=== PATIENT | female | born 1955 | race Caucasian/White ===

== ENCOUNTER 2017-08-05 16:03 | Outpatient (CLI) | payer OTHER | END 2017-08-05 16:04 | disposition home or self-care (01) | LOC: BICRAD 16:03 | PROVIDERS: ATTEND Internal Medicine | DX: M54.31 Sciatica, right side (principal); D25.9 Leiomyoma of uterus, unspecified; M16.11 Unilateral primary osteoarthritis, right hip; M46.87 Other specified inflammatory spondylopathies, lumbosacral region; M48.07 Spinal stenosis, lumbosacral region | CPT/HCPCS: 72100; 72220 ==

== ENCOUNTER 2018-06-05 18:46 | Inpatient (IN) | payer OTHER ==
[2018-06-05] MEDS ORDERED: Adenosine 6 MG/2 ML VIAL ONE (18:59)
[2018-06-05] MEDS ORDERED: Diltiazem 125 MG/25 ML ONE ×2 (19:08→19:09)
[2018-06-05 19:15] LABS: #Basophils 0.1 thou/uL (0.0-0.2); #Eosinphils 0.1 thou/uL (0.0-0.7); #Lymphocytes 2.1 thou/uL (1.20-3.40); #Monocytes 0.7 thou/uL (0.11-0.59); #Neutrophils 3.6 thou/uL (1.40-6.50); %Basophils 1.3 % (0.0-1.0); %Eosinophils 1.6 % (0.0-10.0); %Lymphocytes 31.2 % (21.0-51.0); %Monocytes 10.3 % (0.0-10.0); %Neutrophils 55.5 % (42.0-75.0); Hemoglobin 14.7 g/dL (12.0-16.0); Mean Corpuscular HGB CONC 34.1 g/dL (32.0-36.0); Mean Corpuscular Hemoglobin 32.5 pg (27.0-31.0); Mean Corpuscular Volume 95.2 fL (78.0-98.0); Mean Platelet Volume 7.5 fL (7.4-10.4); Platelet Count 274 thou/uL (130-400); RBC Distribution Width 11.2 % (11.5-14.5); Red Blood Cell (RBC) Count 4.54 mill/uL (4.20-5.40); White Blood Cell (WBC) Count 6.5 thou/uL (4.8-10.8)
[2018-06-05 19:40] LABS: ALT (SGPT) 26 U/L (8-55); AST (SGOT) 21 U/L (5-34); Albumin 4.6 g/dL (3.4-4.8); Alkaline Phosphatase 120 U/L (40-150); Anion Gap 13 mmol/L (10-20); BUN (Urea Nitrogen) 23 mg/dL (9.8-20.1); Bilirubin, Total 0.4 mg/dL (0.2-1.2); CK (CPK) 56 U/L (29-168); Calc. Creatinine Clearance 0 mL/min (70-130); Calcium 10.2 mg/dL (7.8-10.44); Carbon Dioxide 26 mmol/L (23-31); Chloride 105 mmol/L (98-107); Estimated GFR-MDRD 53; Globulin 3.2 g/dL (2.4-3.5); Glucose 115 mg/dL (80-115); Potassium 3.7 mmol/L (3.5-5.1); Protein, Total 7.8 g/dL (6.0-8.3); Sodium 140 mmol/L (136-145)
--- NOTE | 2018-06-05 21:33 | RAD ---
RADIOGRAPH CHEST 1 VIEW: HISTORY: 62-year-old female with tachycardia. FINDINGS: There are no air space densities, pulmonary edema, pneumothorax, or cardiomegaly. The lateral costop hrenic angles are sharp. IMPRESSION: No acute cardiopulmonary findings. felicita POS: JIN
[2018-06-05 22:43] LABS: Troponin I Less than 0.010 ng/mL (< 0.028)
[2018-06-05] MEDS ORDERED: Enoxaparin Sodium 100 MG/ML SYRINGE SC SCH (22:45)
[2018-06-06] MEDS ORDERED: Acetaminophen 500 MG TAB ONE (00:05)
[2018-06-06] MEDS ORDERED: Ibuprofen 200 MG TAB ONE (00:05)
[2018-06-06 01:40] LABS: Troponin I Less than 0.010 ng/mL (< 0.028)
[2018-06-06] MEDS ORDERED: Ondansetron ODT 4 MG TAB SL PRN (02:36)
[2018-06-06] MEDS ORDERED: Acetaminophen 325 MG TAB PO PRN (02:36)
[2018-06-06] MEDS ORDERED: Ondansetron PF 4 MG/2 ML Vial IVP PRN (02:36)
[2018-06-06 03:45] VITALS: BMI 34.0
--- NOTE | 2018-06-06 06:10 | HP ---
CHIEF COMPLAINT: Palpitations. HISTORY OF PRESENT ILLNESS: The patient is a very pleasant 62-year-old female with past medical history of osteoarthritis and hypertension, who comes into the hospital with complaints of palpitations. The patient stated that she was in her garage, doing some work when she started noticing significant amount of palpitations, she got very flushed. No chest pain or shortness of breath at this time. She was afraid, so she came into the ER for further evaluation. The patient was found to be in atrial fibrillation with RVR. She was given some adenosine and diltiazem, and her heart rate went back to normal sinus, controlled in the 60s to 80s. The patient does take metoprolol 50 mg daily. She has not missed any doses. The patient does state that she has been under a lot of stress recently, lot of things have been going on in regard to her parents and also some stuff for her personal life too. The patient currently feels well. She does not have any chest pain or shortness of breath. PAST MEDICAL HISTORY: Hypertension and osteoarthritis of the right hip. PAST SURGICAL HISTORY: She had a tonsillectomy and appendectomy. SOCIAL HISTORY: She denies any alcohol use, smoking. She is a full code. No recreational drug use. She lives with her . ALLERGIES: SHE HAS NO KNOWN DRUG ALLERGIES. MEDICATIONS: 1. Metoprolol 50 mg daily. 2. She takes Advil and Tylenol as needed for her pain. REVIEW OF SYSTEMS: All negative except for the ones mentioned above in HPI. FAMILY HISTORY: Father has Alzheimer's. Mother had leukemia at age of 85. PHYSICAL EXAMINATION: VITAL SIGNS: Temperature 98.3, heart rate 78, respiratory rate 18, 98% on room air, and blood pressure 159/88. GENERAL: She is awake, alert, and oriented x3. Does not appear in distress. CARDIOVASCULAR: S1, S2 present. No murmurs, rubs, or gallops. ABDOMEN: Soft and nontender. Bowel sounds are present x2. EXTREMITIES: No edema. Pedal pulses are present x2. NEUROVASCULAR: No focal deficits noted. SKIN: No cuts, lesions, or bruises noted. HEENT: Normocephalic, atraumatic. No lymphadenopathy noted. PSYCH: Normal affect. LABORATORY DATA: Laboratory results are as of the following; WBCs of 6.5, hemoglobin of 14.7, and hematocrit of 43.2. Chemistry, sodium of 140, potassium of 3.7, BUN of , creatinine of 1.04. Her troponins x3 were negative. Her TSH was 2.17. DIAGNOSTIC STUDIES: The patient also had a chest x-ray, which did not indicate any acute abnormalities. ASSESSMENT AND PLAN: The patient is a very pleasant 62-year-old female, who presents to the hospital with palpitations. 1. Atrial fibrillation with a rapid ventricular response. This seems to be paroxysmal. We will get an echocardiogram on this patient. Her CHADS-VASc score maybe 2. We will start her on some Lovenox. We will also get Cardiology to see this patient. The patient is supposed to have surgery of her right hip in the next few months. 2. Hypertension. We will continue home metoprolol 50 mg daily. 3. Deep venous thrombosis prophylaxis. The patient is already on Lovenox subcu. Job ID: [id number]
[2018-06-06] MEDS ORDERED: Enoxaparin Sodium 100 MG/ML SYRINGE SC SCH (09:00)
[2018-06-06] MEDS: Ibuprofen 200 MG TAB PO PRN ×2 (14:38→21:04)
[2018-06-06] MEDS: Dronedarone HCl 400 MG TAB PO SCH (17:08)
--- NOTE | 2018-06-06 20:58 | CON ---
DATE OF CONSULTATION: 06/06/2018 HISTORY OF PRESENT ILLNESS: Uzma Lott is a pleasant 62-year-old white female, who denies any cardiac problems or arrhythmias in the past. She denies ever having any chest, arm, neck or jaw discomfort or palpitations. Yesterday, she was doing some work in her garage when she started noticing a very rapid heart beat. She denies any shortness of breath or chest discomfort, and had no lightheadedness or dizziness. She came to the emergency room for further evaluation. She was found to be in atrial fibrillation with fast ventricular response of 160 per minute. In the emergency room, she was given adenosine 6 mg IV followed by Cardizem 20 mg IV, Cardizem 5 mg/hour and then another 10 mg of Cardizem. She was given Lovenox 1 mg/kg. She eventually converted to sinus rhythm and the Cardizem has been discontinued. PAST MEDICAL HISTORY: Hypertension, osteoarthritis of the right hip with possible total hip replacement in the future. PAST SURGICAL HISTORY: Tonsillectomy and appendectomy. MEDICATIONS: 1. Metoprolol 50 daily. 2. Ibuprofen 200 mg b.i.d. 3. Tylenol Arthritis. ALLERGIES: NONE. SOCIAL HISTORY: She does not smoke or drink. FAMILY HISTORY: Mother had myocardial infarction. REVIEW OF SYSTEMS: A 12-point review of systems otherwise is unremarkable. PHYSICAL EXAMINATION: VITAL SIGNS: Blood pressure 147/80, pulse 83, sinus rhythm. HEENT: PERRL. NECK: Supple. CHEST: Clear. CARDIAC: S1 and S2 normal without any S3, S4, or murmurs. Carotid upstrokes are normal without bruits. ABDOMEN: Normal bowel sounds without tenderness. EXTREMITIES: Reveal no clubbing, cyanosis, or edema. NEUROLOGIC: Grossly intact. SKIN: Warm and dry. LABORATORY DATA: EKG revealed atrial fibrillation with fast ventricular response. There were no significant ST changes. Echo is pending. CBC is unremarkable. Sodium 140, potassium 3.7, chloride 105, carbon dioxide 26, BUN 23, creatinine 1.04. TSH is normal. Troponin I x3 is normal. Liver function tests are normal. IMPRESSION: 1. Paroxysmal atrial fibrillation, first episode. 2. Hypertension, which appears to be somewhat poorly controlled at the present time. 3. Unknown cholesterol status. 4. Positive family history. PLAN: Echocardiogram will be performed to assess left ventricular function. She denies any history of falls at home and has never had gastrointestinal bleeding or intracranial bleeding. Therefore, she will be placed on Eliquis 5 mg b.i.d. if invasive evaluation is not needed. If she has normal left ventricular function, consideration may be given to placing her on Multaq. Fast lipid profile will be obtained. Job ID: [id number] MTDD
[2018-06-06] MEDS: Apixaban 5 MG TAB PO SCH (21:04)
[2018-06-07 06:42] LABS: Cardiac Risk 3.7 (Less than 4.5)
--- NOTE | 2018-06-07 07:41 | PDOC.PN ---
- Subjective Encounter Start Date: 06/07/18 Encounter Start Time: 10:30 Subjective: Patient without chest pain. No SOB. No palpitations. Ambulating well. - Objective MAR Reviewed: Yes Vital Signs & Weight: Vital Signs (12 hours) Temp Pulse Resp BP Pulse Ox 06/07/18 03:34 97.7 F 72 16 148/84 H 97 06/07/18 00:00 97.9 F 81 16 145/86 H 96 06/06/18 19:56 98.1 F 78 16 151/85 H 96 Weight Weight 204 lb I&O: 06/06/18 06/07/18 06/08/18 06:59 06:59 06:59 Intake Total 760 Balance 760 Result Diagrams: 06/05/18 19:01 06/05/18 19:01 Phys Exam - Physical Examination Constitutional: NAD HEENT: moist MMs Respiratory: no wheezing, no rales, no rhonchi, clear to auscultation bilateral Cardiovascular: RRR, no significant murmur Gastrointestinal: soft Musculoskeletal: no edema Neurological: non-focal, moves all 4 limbs Psychiatric: normal affect, A&O x 3 Dx/Plan (1) Atrial fibrillation with rapid ventricular response Code(s): I48.91 - UNSPECIFIED ATRIAL FIBRILLATION Status: Resolved Comment: Converted yesterday afternoon with her home Metorprolol XL, Dr. Patino has added Multaq and Eliquis. (2) Diastolic CHF Code(s): I50.30 - UNSPECIFIED DIASTOLIC (CONGESTIVE) HEART FAILURE Status: Acute Comment: EF 60-65%, diastolic dysfunction on ECHO (3) Hypertension Code(s): I10 - ESSENTIAL (PRIMARY) HYPERTENSION Status: Chronic Qualifiers: Hypertension type: essential hypertension Qualified Code(s): I10 - Essential (primary) hypertension Comment: poorly controlled - Plan cont current plan of care, out of bed/ambulate Discussed case with Dr. Patino and ok to d/c home. Will add Lisinopril -: to improve BP control. * . - Discharge Day Encounter end time: 10:40
[2018-06-07 07:56] VITALS: TEMP 98.4
[2018-06-07] MEDS: Dronedarone HCl 400 MG TAB PO SCH (08:05)
[2018-06-07] MEDS: Apixaban 5 MG TAB PO SCH (08:05)
[2018-06-07 12:03] VITALS: BP 141/75
--- NOTE | 2018-06-07 20:45 | DIS ---
DATE OF ADMISSION: 06/06/2018 DATE OF DISCHARGE: 06/07/2018 PRIMARY CARE PHYSICIAN: Rubina Singh MD REASON FOR ADMISSION: Atrial fibrillation with rapid ventricular rate. DIAGNOSES AT DISCHARGE: 1. Atrial fibrillation with rapid ventricular rate, resolved, now in normal sinus rhythm. 2. Diastolic congestive heart failure without exacerbation. 3. Hypertension. PROCEDURES: Echocardiogram showing ejection fraction of 60% to 65%. Diastolic dysfunction. No other significant abnormalities. CONSULTATIONS: Cardiology, Dr. Patino. SUMMARY OF HOSPITAL COURSE: This is a 62-year-old white female, who came in complaining of palpitations. They started spontaneously and she got flushed. She was noted to be in atrial fibrillation/atrial flutter with RVR. She was tried with adenosine and eventually her heart rate converted with diltiazem drip. The patient was admitted to the hospital and Dr. Patino was consulted. When patient went to the floor after the diltiazem has been discontinued, she went back into atrial fibrillation with rapid ventricular rate. She was given her home metoprolol and then converted back to normal sinus rhythm again. Dr. Patino did see the patient on echocardiogram showing no left ventricular dysfunction. She was started on Multaq to control her rate and Eliquis to prevent thrombus formation and stroke. The patient did well overnight and is asymptomatic this morning, stated normal sinus rhythm all night. She is being discharged home. She did have some moderately elevated blood pressures in the 140s to 150s, and so lisinopril was being added to her regimen. DISCHARGE MANAGEMENT: Discharged home. FOLLOWUP: Follow up with Dr. Patino in [address] Singh in 2 to 3 weeks. ACTIVITY: As tolerated. DIET: Healthy heart low-sodium diet. DISCHARGE MEDICATIONS: 1. Eliquis 5 mg twice a day, 60 tablets dispensed. 2. Multaq 400 mg twice a day, 60 tablets dispensed. 3. Lisinopril 10 mg daily, 30 tablets dispensed. 4. Resume metoprolol 50 mg XL daily. 5. Ibuprofen 200 mg twice a day as needed for pain. 6. Acetaminophen extended release 1300 mg twice a day. Job ID: [id number]
[2018-06-08] MEDS ORDERED: Lisinopril 10 MG TAB PO SCH (09:00)
== END 2018-06-07 12:52 | disposition home or self-care (01) | DRG 308 ==
LOC: ERS 18:46 → 2SE 06-06 02:05
PROVIDERS: ADMIT Family Medicine; ATTEND Family Medicine
DX: I48.0 Paroxysmal atrial fibrillation (principal); I50.31 Acute diastolic (congestive) heart failure; I48.4 Atypical atrial flutter; M16.11 Unilateral primary osteoarthritis, right hip; I11.0 Hypertensive heart disease with heart failure
CPT/HCPCS: 36415; 71045; 80053; 80061; 82550; 84443; 84484; 85025; 93005; 93306; 94760; 96365; 96366; 96372; 96376; J0153; J1650; J7050

== ENCOUNTER 2024-02-29 14:17 | Outpatient (CLI) | payer MEDICARE, OTHER | END 2024-02-29 14:18 | disposition home or self-care (01) | LOC: BICRAD 14:17 | PROVIDERS: ATTEND Nurse Practitioner Family | DX: R09.89 Other specified symptoms and signs involving the circulatory and respiratory systems (principal); R05.3 Chronic cough | CPT/HCPCS: 71046 ==